=== PATIENT | female | born 1985 | race Caucasian/White ===

== ENCOUNTER 2016-08-14 10:38 | Emergency (ER) | payer OTHER ==
--- NOTE | ~2016-08-14 | ER ---
PATIENT'S NAME: KANDICE AMADO [facility] AGE: 31 Y [address] ROOM: [place] [address] LOCATION: [facility] ADMIT DATE: 08/14/2016 ER/Outpatient Report DISCHARGE DATE: FAMILY PHYSICIAN: Physician, Unknown ATTENDING PHYSICIAN: Vikas Pena CHIEF COMPLAINT: Unresponsive episode and right-sided weakness. HISTORY OF PRESENT ILLNESS: The patient arrives by EMS as a stroke alert. According to available resources, the patient was seen normal at around 8 a.m. or shortly after. At around 9 o'clock, her significant other came to arouse her. She was unresponsive on the couch at that time. EMS was called after she did not improve. The patient does have a history of seizure, but usually comes around quickly. There was no witnessed seizure-like activity. She has no other concerns today according to the current presentation. She has not taken any of her antiepileptic medications for a significant amount of time. Per EMS, the patient had some low-risk blood pressures, and was initially minimally responsive; however, did begin to open her eyes and move her left side shortly after their arrival, but they see nothing but twitching movements on the right side. She has not said anything and does not appear to be following commands for them. The EMS providers did give some fluid as her blood pressures continued to be low. According to family, she does not have any issues of low blood pressure, and she has not had any infectious complaints such as fevers, chills, dysuria, cough, or other concerning signs or symptoms. PAST MEDICAL HISTORY: Documented on the record and reviewed by me. SOCIAL HISTORY: Documented on the record and reviewed by me. MEDICATIONS: Documented on the record and reviewed by me. ALLERGIES: DOCUMENTED ON THE RECORD AND REVIEWED BY ME. REVIEW OF SYSTEMS: Unable to complete review of systems with the patient secondary to her current mental status. However, all information available was reviewed from collateral sources. PATIENT'S NAME: KANDICE AMADO [facility] AGE: 31 Y [address] ROOM: [place] [address] LOCATION: [facility] ADMIT DATE: 08/14/2016 ER/Outpatient Report DISCHARGE DATE: FAMILY PHYSICIAN: Physician, Unknown ATTENDING PHYSICIAN: Vikas Pena PHYSICAL EXAMINATION: VITAL SIGNS: On arrival, blood pressure was 103/52, pulse was 74, respiratory rate was 16, temperature was 97 degrees, and SpO2 is 96% on room air. Pain appears to be 0/10. GENERAL: Age-appropriate female in unusual posture resting on the gurney, in no obvious pain or distress. NEUROLOGIC: The patient is awake, her eyes are open. She is mute. She purposefully moves the left side of her body, and uses her hands and feet to manipulate the IV tubing and extricate herself from same during transfer from EMS cart to the bed. She does not follow commands in any extremities. She has significant left field gaze, and does not reach center to the right side. She does not respond to any painful stimuli in the extremities. Her right side is flaccid. She does not have any pronator drift on the left side. The right side did become rigid later on in our evaluation of the patient. There were no purposeful movements on the right side. After tPA, she did have some ability to follow commands on the left. She remained mute throughout her time in the Emergency Department. HEENT: Normocephalic and atraumatic. The eyes are PERRL. The oropharynx is clear. NECK: Supple. Trachea is midline. CHEST: Heart is regular rate and rhythm with no murmurs. LUNGS: Clear to auscultation bilaterally with no rhonchi, wheezes, or rales. ABDOMEN: Soft, nontender, and nondistended. No rebound or guarding. BACK: Appears to be normal. EXTREMITIES: Warm and well perfused with no obvious abnormalities. SKIN: Warm, dry, and intact without rashes. LABORATORY DATA AND X-RAYS: Head CT without bleeding. CTA reveals near complete occlusion of the left MCA. Renal panel reveals a chloride of 111, normal anion gap, creatinine of 0.6, and GFR is greater than 60. No other gross abnormalities. Blood gas with pH of 7.40, pCO2 is 35, pO2 is 109, and bicarb is 21.7. Lactate is 2.1. The hCG is below detectable threshold. CBC was without remarkable abnormality. INR is 0.97. D-dimer was 0.28. Troponin is below threshold. Alcohol salicylate and acetaminophen levels are all undetectable. Urine drug screen was without abnormality. No other studies were completed. EKG was not performed. The patient remained sinus rhythm on the monitor. IMPRESSION: 1. 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 ROOM: [place], [place] [address] LOCATION: [facility] ADMIT DATE: 08/14/2016 ER/Outpatient Report DISCHARGE DATE: FAMILY PHYSICIAN: Physician, Unknown ATTENDING PHYSICIAN: Vikas Pena. 2. History of epilepsy. 3. Status post tPA. EMERGENCY DEPARTMENT COURSE: The patient was evaluated by EMS. They called ahead, described her symptoms, and a stroke alert was initiated. The patient's last known normal time was shortly after 8 a.m., nearest as we can tell. She was found to be unusual at 9 a.m. She arrived here, and received a Stroke Scale by myself. At 10:41, her Stroke Scale was 19 as best I could tell. Dr. Hummel evaluated her as well. CT was obtained, and based on her current presentation and deficits, and the fact that we were at her three-hour window, tPA was initiated. She did improve somewhat to that. As soon as we were able to, we gave her some fluids to help with her lower blood pressures. After a few liters of fluid, she continued to have low blood pressures, which remained fluid responsive with good urine output. At that time, empirically, Solu-Cortef was administered 100 mg. She did respond somewhat to that. She received a total of 5 L of fluid to treat her blood pressures. The tPA had been administered, and thus a central line was not placed. No evidence of infection or sepsis. No evidence of overdose at this time. The CTA of the head was obtained, and was found to be consistent with large MCA stroke. Dr. Hummel contacted [facility], Dr. Shepherd, Interventional neurosurgeon. The patient was transferred by air ambulance to their facility. She did not have any deterioration while in the Emergency Department here. Her significant other, who is technically her boyfriend, did give permission for treatment and transfer. The family was available, but they did defer to that individual for decision-making purposes. CRITICAL CARE TIME: One hour and fifteen minutes of critical care time was spent on this patient, both inpatient and evaluation, initiating stroke protocols, titration of fluids to blood pressure, patient re-evaluation, contacting the referring provider, ordering CT, interpreting labs, and arranging the transfer. This includes EMS direction. I did direct them to give fluids prior to the patient's arrival. Critical care is warranted for acute cerebral dysfunction in the setting of hypotension requiring multiple re-evaluations. All questions were answered, and the patient was transferred without difficulty. VIKAS PENA MD PATIENT'S NAME: KANDICE AMADO [facility] AGE: 31 Y [address] ROOM: [place] [address] LOCATION: [facility] ADMIT DATE: 08/14/2016 ER/Outpatient Report DISCHARGE DATE: FAMILY PHYSICIAN: Physician, Unknown ATTENDING PHYSICIAN: Vikas Pena/filemon /[id number] d: 08/14/162034 t: 08/24/16 173, OUTPATIENT REPORT
--- NOTE | ~2016-08-14 | CON ---
PATIENT'S NAME: MYESHA AMADO [facility] AGE: 31 Y [address] ROOM: [place] [address] LOCATION: ED ADMIT DATE: 08/14/2016 Consultation DISCHARGE DATE: FAMILY PHYSICIAN: Physician, Unknown ATTENDING PHYSICIAN: Vikas Simmons Kellee was called to the emergency room by Dr. Simmons this morning for this Critical Care Consultation. Total time in treatment including assessment for TPA, radiological consultaion, consultation with accepting transfering physician Dr. Richards at [facility] was 75 mins. HISTORY OF PRESENT ILLNESS: Ms. Amado is a 31-year-old female patient who had a seizure history. However, she has not been on seizure medications for at least a decade less. Generalized seizure was one year ago. Other than that, she has not had any generalized seizures for many years according to the family members. This morning sometime before 9 o'clock she was found by her sister unresponsive at home. They had previously seen her normal during breakfast time sometime after 8 o'clock. She was not responding to commands. She was hemiparetic on the right side of her body and looking towards the left and completely mute. There was no evidence of any witnessed seizure and the patient did not have any injury to her body. She did not bite her tongue. She has no blood from her mouth. She lives quite a distance from our area in [place], but because of the potential for a stroke in this patient, she was sent here to our hospital. Upon arrival here, she had a forced eye deviation to the left. She was unable to bring her eyes towards midline. She was unable to follow any commands such as smiling or raising her arm. Her right arm and a right leg were flaccid, and did not show evidence for guarding of her face upon lifting her right arm. Her head was turned to the left, but she could move her head to the right a bit. She was completely aphasic and not responding to commands, but was alert and was able to look towards her legs and towards her arm. She was able to move her left upper extremity with apparently full power. The patient was immediately taken to the CAT scan of her brain which was within normal limits showing no evidence of a bleed. In discussions with the family members including her significant other of at least 7 years, she has never had any episode of a post seizure paralysis such as would be seen in a Shlomo's paralysis. In fact her seizures were usually fairly benign. She would have normal complex partial seizures which she would know when would happen or when they would come on and a generalized seizure would be brief, never followed by any type of a paralysis. Her father whom I have also talked to, also never saw her daughter with any type of paralysis after a seizure. I discussed with the family that her presentation with a forced eye deviation even out to greater than 2 hours after having this event of paralysis being completely aphasic that we have to treat this as a stroke. Thus tPA was given at 11:13 a.m. At the time of giving her tPA, she had already received 1 L of fluid for relative hypotension with blood pressures in the 80s systolic. Her blood pressures responded basically to fluid bolus. She is now on her second liter of fluid with blood pressure around 90 systolic presently, still remains aphasic with left gaze preference. PATIENT'S NAME: MYESHA AMADO [facility] AGE: 31 Y [address] ROOM: [place] [address] LOCATION: [facility] ADMIT DATE: 08/14/2016 Consultation DISCHARGE DATE: FAMILY PHYSICIAN: Physician, Unknown ATTENDING PHYSICIAN: Vikas Simmons PRIOR MEDICAL HISTORY: History of a distant seizure free from childhood, however she has not been on seizure medications for at least 10 years, or perhaps longer. Her seizures are not manifested ever by a postictal phenomena such as paralysis. There is no known history of hypertension or hypotension. The patient was previously well and healthy. SOCIAL HISTORY: She does smoke probably half a pack of cigarettes a day. She denies any boyfriend's as she does not have. She does not use any illicit medications and there is no alcohol use. She has 3 children. She is unmarried presently. She resides in [place], [place]. No known surgical history. There is no known medications that she currently takes. FAMILY HISTORY: Not significant here with no known history of seizures or strokes. REVIEW OF SYSTEMS: The patient presents here with a global aphasia even hours after presenting at home. Last seen normal around 8 o'clock; likely new onset of her symptoms were more towards 9:00 a.m. The patient was given tPA for a likely presentation for a stroke. The rest of the review of systems other than a distant seizure history is negative. PHYSICAL EXAMINATION: The patient is unresponsive to questioning. She is looking blankly toward the left visual field and a tendency to only turn her head to the left and she does move her left arm and her left leg. She has no obvious movement of her right side. She does not speak. She does not answer to commands such as simply smiling, or to closing her eyes. She briefly follows commands by blinking her eyes, but this is sparing the responses withdraws to painful stimuli only on the left side. Current laboratory results reveal a normal prolactin level of 11.4. ECG was negative. Basic metabolic panel was within normal limits. A complete blood count was within normal limits. Coagulation profile was normal. IMPRESSION: Ms. yMesha Amado is a 31-year-old female patient who presents with a global aphasia, right hemiparesis, left gaze preference; is status post receiving tPA. The patient will be admitted to the ICU. We will try to get a CT angiogram at this point to look for any vessel occlusion particularly into the left MCA. She presents here in normal sinus rhythm, but is relatively PATIENT'S NAME: MYESHA AMADO [facility] AGE: 31 Y [address] ROOM: [place] [address] LOCATION: [facility] ADMIT DATE: 08/14/2016 Consultation DISCHARGE DATE: FAMILY PHYSICIAN: , Yu ATTENDING PHYSICIAN: Vikas Simmons hypotensive at this time. Thus we are pushing IV normal saline fluid boluses of at least 2 L presently. Follow the patient very closely as this is a very dramatic presentation, known hypotension pre-existed even receiving the tPA this morning. Addendum: Upon given TPA and giving fluid resusitation for hypotension, the patient was brought back to the CT of the head/Neck with contrast to for evidence of a thrombosis to explain the patient's acute stroke symptoms. There was evidence of a clot in the distal Left Middle Cerebral artery with evidence of evoloving hypodensity in the area. Immediately, i was in contact with Dr. Richards (interventional Neurosurgeon for acute stroke) at [facility], and he directed us to air copter the patient to [facility] ER for likely interventional radiologic procedure for potential use of intrarterial TPA depending on the notion of the presence of the existing hypodensity already seen on CT scan. The patient's family was kept abreast through out all the decision making to receive TPA and to be air flighted to [facility] for advanced care and potential IA TPA. MD NAYELI NOVOA/filemon /[id number] d: 08/14/16 1340 t: 08/15/16 2242, CONSULTATION REPORT
[2016-08-14 10:56] LABS: BASOPHIL % 0.3 %; EOSINOPHIL # 0.1 K/uL (0.0-0.5); EOSINOPHIL % 0.7 %; HEMATOCRIT 39.9 % (33.0-46.0); HEMOGLOBIN 13.3 g/dL (11.0-15.0); IMMATURE GRANULOCYTE % 0.3 %; LYMPHOCYTE # 1.9 K/uL (0.8-4.0); LYMPHOCYTE % 20.9 %; MCH 31.4 pg (27.0-34.0); MCHC 33.3 gm/dL (32.0-36.5); MCV 94.1 fl (83.0-98.0); MONOCYTE # 0.7 K/uL (0.0-1.0); MONOCYTE % 7.8 %; MPV 8.9 fl (9.4-12.4); NEUTROPHIL # (ANC) 6.2 K/uL (1.8-7.8); NRBC % 0 /100WBC (0-0.00); PLATELET COUNT 266 K/uL (150-450); WBC 8.8 K/uL (4.0-11.0)
[2016-08-14 10:57] LABS: RBC 4.24 M/uL (3.50-5.50)
[2016-08-14 11:06] LABS: INR - (THERAPEUTIC) 0.97 (0.92-1.07); PROTIME 10.2 SECONDS (9.8-11.4); PTT 23 SECONDS (25-32)
[2016-08-14 11:14] LABS: ALBUMIN 3.2 gm/dL (3.5-5.0); ANION GAP 13.7 (10.0-19.0); BLOOD UREA NITROGEN 15 mg/dL (6-24); CALCIUM 7.9 mg/dL (8.5-10.5); CHLORIDE 111 mMol/L (96-110); CO2 22 mMol/L (22-32); CREATININE 0.6 mg/dL (0.5-1.1); ESTIMATED GFR (MDRD EQUATION) > 60; POTASSIUM 3.7 mMol/L (3.7-5.1); SODIUM 143 mMol/L (135-145)
[2016-08-14 11:17] LABS: BICARBONATE 21.7 mmol/L (18.0-23.0); LACTATE 2.1 mEq/L (0.50-1.60); PCO2 35 mmHg (35-45); PO2 109 mmHg (80-90)
[2016-08-14 12:10] LABS: BARBITURATE NEGATIVE (NEGATIVE); COCAINE NEGATIVE (NEGATIVE)
[2016-08-14 12:12] LABS: AMPHETAMINE NEGATIVE (NEGATIVE); OPIATES NEGATIVE (NEGATIVE)
[2016-12-10] MEDS ORDERED: ASPIRIN LO-DOSE81 MG PO (03:33)
[2016-12-10] MEDS ORDERED: LIPITOR80 MG PO (03:34)
== END 2016-08-14 13:02 | disposition disaster alternative care site (69) ==
LOC: GMED 10:38
PROVIDERS: Emergency Medicine
PROC: 0T9B70Z Drainage of Bladder with Drainage Device, Via Natural or Artificial Opening (ICD-10-PCS; principal; 2016-08-14)
DX: I63.512 Cerebral infarction due to unspecified occlusion or stenosis of left middle cerebral artery (principal); R41.4 Neurologic neglect syndrome; G40.909 Epilepsy, unspecified, not intractable, without status epilepticus; Z79.899 Other long term (current) drug therapy
CPT/HCPCS: G0480; J1720; J2405; J2997; J7030

== ENCOUNTER → 2016-08-14 | Outpatient (CLI) | payer OTHER ==
[~2016-08-14] MED LIST: ASPIRIN LO-DOSE81 MG PO; LIPITOR80 MG PO
== END | disposition disaster alternative care site (69) ==
LOC: GAIR 12:43
DX: R53.1 Weakness (principal); R47.01 Aphasia; I63.9 Cerebral infarction, unspecified; Z86.69 Personal history of other diseases of the nervous system and sense organs
CPT/HCPCS: A0422; A0431; A0436

== ENCOUNTER → 2016-12-10 | Outpatient (CLI) | payer OTHER | END | disposition disaster alternative care site (69) | LOC: GAMB 20:28 | DX: I63.9 Cerebral infarction, unspecified (principal); G81.91 Hemiplegia, unspecified affecting right dominant side; F12.90 Cannabis use, unspecified, uncomplicated; G40.909 Epilepsy, unspecified, not intractable, without status epilepticus; I69.898 Other sequelae of other cerebrovascular disease; R20.0 Anesthesia of skin; R53.1 Weakness; R47.9 Unspecified speech disturbances; R47.01 Aphasia; Z79.82 Long term (current) use of aspirin; Z79.01 Long term (current) use of anticoagulants; Z79.899 Other long term (current) drug therapy ==